=== PATIENT | female | born 1980 | race Caucasian/White ===

== ENCOUNTER → 2016-07-01 | Outpatient (CLI) | payer BC ==
--- NOTE | 2016-07-01 07:33 | US ---
EXAMINATION TYPE: US abdomen complete DATE OF EXAM: 07/01/2016 7:07 AM COMPARISON: NONE CLINICAL HISTORY: 36-year-old female RUQ PAIN R10.11,R11.1 VOMITING. Larger habitus, right upper quad rant pain with vomiting. TECHNIQUE: Multiple sonographic images of the abdomen were obtained. FINDINGS: EXAM MEASUREMENTS: Non Profit Director notes: Some technical limitations due to larger habitus and overlying bowel gas. Liver Length: 20.2 cm Gallbladder Wall: 0.2 cm CBD: 0.5 cm Spleen: 10.8 cm Right Kidney: 10.4 x 4.4 x 4.9 cm Left Kidney: 11.0 x 6.1 x 5.9 cm Pancreas: Suboptimal visualization of the pancreatic tail secondary to shadowing from bowel gas. Vis ualized portions show no gross abnormality. Liver: Enlarged and echogenic. This secondary limits assessment for focal lesion. Gallbladder: No abnormal gallbladder distention, wall thickening, or pericholecystic fluid. There is some layering small calculi or gravel noted. Evidence for sonographic Lares's sign: no CBD: wnl Spleen: wnl Right Kidney: No hydronephrosis Left Kidney: No hydronephrosis Upper IVC: wnl Abd Aorta: wnl as seen, some limitations due to overlying bowel gas IMPRESSION: 1. Hepatomegaly (20.2 cm) with moderate hepatic steatosis. Correlate with LFTs, lipid profile, and pa tient risk factors. 2. Some layering small calculi or gravel within the gallbladder. No sonographic evidence for acute ch olecystitis.
== END | disposition home or self-care (01) ==
LOC: RADUSWWP 06:46
PROVIDERS: ATTEND Family Medicine
DX: R16.0 Hepatomegaly, not elsewhere classified (principal); K76.0 Fatty (change of) liver, not elsewhere classified
CPT/HCPCS: 76700

== ENCOUNTER → 2017-07-20 | Outpatient (CLI) | payer BC ==
--- NOTE | 2017-07-20 12:37 | MM ---
Reason for exam: screening (asymptomatic). Baseline mammogram. History: Took progesterone beginning at age 34. Physical Findings: Nurse did not find any significant physical abnormalities on exam. MG Screening Mammo w CAD Bilateral CC and MLO view(s) were taken. There are scattered fibroglandular densities. Focal asymmetry inner upper right breast. These results were verbally communicated with the patient and result sheet given to the patient on 07/20/17. ASSESSMENT: Incomplete: need additional imaging evaluation, BI-RAD 0 RECOMMENDATION: Special view mammogram of the right breast. If lesion persists on supplemental views, image directed ultrasound is recommended. [facility] will attempt to contact patient to return for supplemental views and ultrasound if indicated.
--- NOTE | 2017-07-20 12:38 | MM ---
Reason for exam: additional evaluation requested from abnormal screening. History: Took progesterone beginning at age 34. Physical Findings: Breast exam preformed at baseline screening. MG Work Up Mamm w CAD RT Spot compression CC, spot compression MLO, and ML view(s) were taken of the right breast. Nodular density 7.5cm from nipple persists. Ultrasound is recommended. These results were verbally communicated with the patient and result sheet given to the patient on 07/20/17. ASSESSMENT: Incomplete: need additional imaging evaluation, BI-RAD 0 RECOMMENDATION: Ultrasound of the right breast.
--- NOTE | 2017-07-20 12:39 | USB ---
Reason for exam: additional evaluation requested from abnormal screening. History: Took progesterone beginning at age 34. US Breast Workup Limited RT Right breast ultrasound demonstrates no cystic or solid lesion seen. These results were verbally communicated with the patient and result sheet given to the patient on 07/20/17. ASSESSMENT: Probably benign, BI-RAD 3 RECOMMENDATION: Follow-up diagnostic mammogram of the right breast in 6 months.
== END | disposition home or self-care (01) ==
LOC: RADMAMWWP 08:03
PROVIDERS: ATTEND Obstetrics & Gynecology
DX: Z12.31 Encounter for screening mammogram for malignant neoplasm of breast (principal); R92.8 Other abnormal and inconclusive findings on diagnostic imaging of breast
CPT/HCPCS: 77065; 77067

== ENCOUNTER → 2018-01-20 | Outpatient (CLI) | payer BC | END | disposition home or self-care (01) | LOC: RADMAMWWP 09:14 | PROVIDERS: ATTEND General Practice | DX: Z53.9 Procedure and treatment not carried out, unspecified reason (principal) ==

== ENCOUNTER → 2020-07-09 | Outpatient (CLI) | payer OTHER ==
--- NOTE | 2020-07-10 11:39 | MM ---
Reason for exam: screening (asymptomatic). Last mammogram was performed 2 years and 5 months ago. History: Took progesterone beginning at age 34. Physical Findings: A clinical breast exam by your physician is recommended on an annual basis and results should be correlated with mammographic findings. MG 3D Screening Mammo W/Cad Bilateral CC and MLO view(s) were taken. Prior study comparison: February 09, 2018, right breast MG 3d diag mammo w/cad RT. July 20, 2017, bilateral MG screening mammo w CAD. There are scattered fibroglandular densities. There is no discrete abnormality. ASSESSMENT: Negative, BI-RAD 1 RECOMMENDATION: Routine screening mammogram of both breasts in 1 year.
== END | disposition home or self-care (01) ==
LOC: RADMAMWWP 09:14
PROVIDERS: ATTEND General Practice
DX: Z12.31 Encounter for screening mammogram for malignant neoplasm of breast (principal)
CPT/HCPCS: 77063; 77067

== ENCOUNTER → 2020-08-07 | Outpatient (CLI) | payer OTHER ==
[2020-08-07 21:57] LABS: Gliadin AB IgA, Deaminated NEGATIVE (NEGATIVE); Gliadin AB IgA, Unit 0.3 U/mL; Gliadin AB IgG, Deaminated POSITIVE (NEGATIVE)
[2020-08-08 13:08] LABS: Latex IgE Class CLASS 0
== END | disposition home or self-care (01) ==
LOC: LABWHC1 12:31
PROVIDERS: ATTEND Allergy & Immunology
DX: K21.9 Gastro-esophageal reflux disease without esophagitis (principal); R21 Rash and other nonspecific skin eruption
CPT/HCPCS: 36415; 82784; 83516; 86003

== ENCOUNTER → 2021-02-26 | Outpatient (CLI) | payer OTHER | END | disposition home or self-care (01) | LOC: LABWHC1 14:59 | PROVIDERS: ATTEND Allergy & Immunology | DX: T78.3XXA Angioneurotic edema, initial encounter (principal) | CPT/HCPCS: 36415; 86160; 86161 ==

== ENCOUNTER → 2021-09-23 | Outpatient (CLI) | payer OTHER | END | disposition home or self-care (01) | LOC: RADMAMWWP 06:53 | PROVIDERS: ATTEND Obstetrics & Gynecology | DX: Z53.9 Procedure and treatment not carried out, unspecified reason (principal) ==

== ENCOUNTER → 2021-10-08 | Outpatient (CLI) | payer OTHER | END | disposition home or self-care (01) | LOC: LABWHC1 08:22 | PROVIDERS: ATTEND Obstetrics & Gynecology | DX: Z53.9 Procedure and treatment not carried out, unspecified reason (principal) ==

== ENCOUNTER → 2021-12-29 | Outpatient (CLI) | payer OTHER ==
--- NOTE | 2021-12-29 11:03 | MM ---
Reason for Exam: Screening (asymptomatic). Last mammogram was performed 1 year(s) and 6 month(s) ago. Patient History: Menarche at age 12. Progesterone, from age 34 until age 36. Last menstrual period: 11/27/2021 Risk Values: Yoselin 5 year model risk: 0.5%. NCI Lifetime model risk: 7.2%. Prior Study Comparison: 07/20/2017 Bilateral Screening Mammogram, [facility]. 02/09/2018 Right Diagnostic Mammogram, [facility]. 07/09/2020 Bilateral Screening Mammogram, [facility]. Tissue Density: There are scattered fibroglandular densities. Findings: Analyzed By CAD. There is no suspicious new group of microcalcifications or new suspicious mass in either breast. Overall Assessment: Negative, BI-RAD 1 Management: Screening Mammogram of both breasts in 1 year. A clinical breast exam by your physician is recommended on an annual basis and results should be correlated with mammographic findings. Electronically signed and approved by: Paulo Horvath M.D.
== END | disposition home or self-care (01) ==
LOC: RADMAMWWP 07:55
PROVIDERS: ATTEND Obstetrics & Gynecology
DX: Z12.31 Encounter for screening mammogram for malignant neoplasm of breast (principal)
CPT/HCPCS: 77063; 77067

== ENCOUNTER → 2022-12-31 | Outpatient (CLI) | payer OTHER ==
--- NOTE | 2023-01-01 09:16 | MM ---
Reason for Exam: Screening (asymptomatic). Last screening mammogram was performed 12 month(s) ago. Patient History: Menarche at age 12. Progesterone, from age 34 until age 36. Last menstrual period: 11/02/2022 Risk Values: Yoselin 5 year model risk: 0.5%. NCI Lifetime model risk: 7.1%. Prior Study Comparison: 02/09/2018 Right Diagnostic Mammogram, [facility]. 07/09/2020 Bilateral Screening Mammogram, [facility]. 12/29/2021 Bilateral MG 3D screening mammo w/cad, [facility]. Tissue Density: The breast tissue is heterogeneously dense. This may lower the sensitivity of mammography. Findings: Analyzed By CAD. There is no suspicious group of microcalcifications or new suspicious mass in either breast. Overall Assessment: Negative, BI-RAD 1 Management: Screening Mammogram of both breasts in 1 year. . Patient should continue monthly self-breast exams. A clinical breast exam by your physician is recommended on an annual basis. This exam should not preclude additional follow-up of suspicious palpable abnormalities. Note on Yoselin scores and lifetime risk: 1. A Yoselin score greater than 3% is considered moderate risk. If this is the case, consider specialist referral to assess eligibility for a risk reducing agent. 2. If overall lifetime risk for the development of breast cancer is 20% or higher, the patient may qualify for future screening with alternating mammogram and breast MRI. Electronically signed and approved by: Lm Araujo M.D. Radiologis
== END | disposition home or self-care (01) ==
LOC: RADMAMWWP 06:49
PROVIDERS: ATTEND Family Medicine
DX: Z12.31 Encounter for screening mammogram for malignant neoplasm of breast (principal)
CPT/HCPCS: 77063; 77067

== ENCOUNTER → 2024-04-10 | Outpatient (CLI) | payer OTHER ==
--- NOTE | 2024-04-10 12:11 | MM ---
Reason for Exam: Screening (asymptomatic). Last mammogram was performed 1 year(s) and 3 month(s) ago. Patient History: Menarche at age 12. Progesterone, from age 34 until age 36. Risk Values: Yoselin 5 year model risk: 0.6%. NCI Lifetime model risk: 7.1%. Prior Study Comparison: 07/09/2020 Bilateral Screening Mammogram, [facility]. 12/29/2021 Bilateral MG 3D screening mammo w/cad, [facility]. 12/31/2022 Bilateral MG 3D screening mammo w/cad, [facility]. Tissue Density: The breasts are almost entirely fatty. Analyzed By CAD. Overall Assessment: Negative, BI-RAD 1 Management: Screening Mammogram of both breasts in 1 year. Electronically signed and approved by: Paulo Horvath M.D.
== END | disposition home or self-care (01) ==
LOC: RADMAMWWP 09:04
PROVIDERS: ATTEND Family Medicine
DX: Z12.31 Encounter for screening mammogram for malignant neoplasm of breast (principal); R92.313 Mammographic fatty tissue density, bilateral breasts
CPT/HCPCS: 77063; 77067

== ENCOUNTER → 2024-04-10 | Outpatient (CLI) | payer BC ==
--- NOTE | 2024-04-10 11:25 | CA ---
Stress Echo Report Daria Wills Age: 43 Gender: F : 1980 Exam Date: 04/10/2024 10:28 Exam Location: [facility] Ht (in): 66 Wt (lb): 320 Ordering Physician: Adrian Smiley DO Referring Physician: ADRIAN SMILEY,, Brushing Machine Operator: Arcadio Chen Technologist Procedure CPT: Indication: I10 HYPERTENSION ICD-9 Codes: Rhythm: Patient History: Chest pressure, palpitations and hypertension Cardiac Medications: Medications in past 24 hours: Contrast: Stress Results Protocol: Mario Total dose(mL): Exercise Duration (min:sec): 6:[address] Depression (mm): 0 Angina Score: 0 Bennett Score: 6.5 METS: 7.7 Resting HR: 72 Resting BP: 137 / 71 Peak HR: 170 Peak BP: 199 / 50 Max Predicted HR: 176 97 % Max Predicted HR Target HR: 150 Double Product: [id number] Stress Summary: BP Response: Normal Reason for Termination: Reached target heart rate or work-load Cardiac Symptoms: No symptoms ECG Analysis Resting ECG: Normal sinus rhythm, normal ECG Stress ECG: No abnormal ST/T wave changes with exercise Arrhythmia: Occasional PVCs Echo Analysis Resting Echo: Normal resting echocardiogram. Peak Echo Analysis: Normal wall thickening and motion MEASUREMENTS (Male/Female) Normal Values CONCLUSIONS Patient falls into low-risk group (DTS >= +5). This associates the patient with an annual CV mortality <= 0.5%. Average exercise tolerance with normal electrocardiographic response to exercise Normal stress echocardiogram with no evidence of stress induced ischemia Dr. Jigar Valencia MD (Electronically Signed) Final Date: 10 April 2024 11:24
== END | disposition home or self-care (01) ==
LOC: RADNMMAIN 09:02
PROVIDERS: ATTEND Family Medicine
DX: I10 Essential (primary) hypertension (principal)
CPT/HCPCS: 93351